=== PATIENT | female | born 1970 ===

== ENCOUNTER 2018-02-28 08:33 | Emergency (ER) | payer SELFPAY ==
[~2018-02-28] VITALS: Ht 152.4 cm; Wt 54.4 kg
[2018-02-28 11:11] VITALS: BP 138/88
== END 2018-02-28 11:11 | disposition left against medical advice (07) ==
LOC: ER 08:34
DX: J10.1 Influenza due to other identified influenza virus with other respiratory manifestations (principal); F17.210 Nicotine dependence, cigarettes, uncomplicated
CPT/HCPCS: 99282